=== PATIENT | female | born 1990 | race Caucasian/White ===

== ENCOUNTER 2017-05-24 08:43 | Day surgery (SDC) | payer BC ==
[2017-05-15 16:10] VITALS: BMI 24.1
[2017-05-24] MEDS ORDERED: BUPIVACAINE HCL/EPINEPHRINE/PF 30 ML VIAL IJ ONE (09:50)
[2017-05-24] MEDS ORDERED: LIDOCAINE HCL/PF 2% SDV 5ML VIAL ONE (10:58)
[2017-05-24] MEDS ORDERED: PROPOFOL 20 ML ONE (10:58)
[2017-05-24] MEDS ORDERED: DEXAMETHASONE SOD PHOSPHATE 4 MG/1 ML VIAL ONE (10:58)
[2017-05-24] MEDS ORDERED: ONDANSETRON 4 MG/2 ML VIAL ONE (10:58)
[2017-05-24] MEDS ORDERED: MIDAZOLAM HCL 2 MG/2 ML SINGLE DOSE VIAL ONE (10:58)
[2017-05-24] MEDS ORDERED: LIDOCAINE HCL 2% JELLY (5 ML/TUBE) ONE (10:58)
[2017-05-24] MEDS ORDERED: KETOROLAC TROMETHAMINE 30 MG/1 ML VIAL ONE (10:58)
--- NOTE | 2017-05-24 12:00 | DS ---
Physical Examination Vital Signs: Vital Signs Temperature 98.2 F 05/24/17 09:08 Pulse Rate 74 05/24/17 09:08 Respiratory Rate 16 05/24/17 09:08 Blood Pressure 127/73 05/24/17 09:08 O2 Sat by Pulse Oximetry (%) 100 05/24/17 09:33 Discharge Summary Reason For Visit: MEDIAL MENISCAL TEAR LEFT KNEE Condition: Good - Instructions Diet, Activity, Other Instructions: Post Operative Instructions: Knee Arthroscopy Dr Warner Vick 1. Pain following an arthroscopy is variable. Some patients will have more pain than others. You have been provided with a prescription for medication that contains a narcotic. You are not allowed to drive while on this medication. Feel free to take medications such as Ibuprofen or Naprosyn in addition to the pain medicine if you do not have any problems with the NSAID class of medications. 2. You are allowed to remove the bandages and shower in 24 hours unless directed otherwise. You are not allowed to bathe or go swimming until the sutures are removed. Put band-aids on the glue after your shower and do not put any creams or lotions over the incisions. 3. You are allowed to put all your weight on the leg and bend your knee. 4. Apply ice to the knee for 15 min every hour or so. You may continue this for as many days as you like. 5. Please call the office to schedule a visit to have your sutures removed. 6. If for any reason you believe you may have an infection or are concerned, please feel free to call me. I can be reached through our office number 24 hours a day. 7. Please call our office with any questions; we will review the surgical findings during your post operative visit. Disposition: HOME - Home Medications Comprehensive Discharge Medication List: Ambulatory Orders NK [No Known Home Medication] 05/15/17
--- NOTE | 2017-05-24 12:00 | OP ---
Operative Note - Note: Operative Date: 05/24/17 Pre-Operative Diagnosis: Displaced flap tear of the medial meniscus of the left knee Operation: AILYN, LOU Post-Operative Diagnosis: Same as Pre-op Surgeon: Warner Vick Anesthesia: Local Operative Report Dictated: Yes
[2017-05-24] MEDS ORDERED: ONDANSETRON 4 MG/2 ML VIAL IVPUSH PRN (13:04)
[2017-05-24] MEDS ORDERED: oxyCODONE HCL 5 MG TABLET PO PRN (13:04)
[2017-05-24] MEDS ORDERED: LACTATED RINGERS SOLUTION 1,000 ML IV SCH (13:15)
[2017-05-24] MEDS ORDERED: PROMETHAZINE HCL 25 MG/1 ML VIAL IVPUSH PRN (14:22)
[2017-05-24 17:20] VITALS: BP 105/55; PULSE 75; TEMP 98.6
--- NOTE | 2017-05-27 14:57 | PATH ---
Surgical Pathology Report Patient Name: ARIANE VERMA Med. Rec. #: [id number] /Age/Gender: 1990 (Age: 27) / F Account: [id number] Location: [facility] Taken: 05/24/2017 Received: 05/24/2017 Reported: 05/27/2017 Physicians: Warner Vick M.D. Specimen(s) Received A: LEFT KNEE SHAVINGS B: LEFT KNEE MENISCUS Clinical History Medial meniscal tear Final Diagnosis A. KNEE, LEFT, ARTHROSCOPIC SHAVINGS: FIBROSYNOVIAL TISSUE. B. MENISCUS, LEFT KNEE, MENISCECTOMY: FIBROCARTILAGINOUS TISSUE. Electronically Signed Tamika Saldana M.D. Gross Description A. Received in formalin labeled "left knee shavings," is a 1.5 x 1.2 x 0.2 cm aggregate of noble-yellow soft tissue fragments. The formalin is filtered and the specimen is entirely submitted in one cassette. B. Received in formalin labeled "left knee meniscus," is a 3.7 x 0.8 x 0.2 cm noble, irregular portion of tissue, consistent with a portion of meniscus. The specimen is submitted in toto in one cassette. /05/24/201705/24/2017
== END 2017-05-24 17:15 | disposition home or self-care (01) ==
LOC: FASU 08:43
PROVIDERS: ATTEND Orthopaedic Surgery
PROC: 0SBD4ZZ Excision of Left Knee Joint, Percutaneous Endoscopic Approach (ICD-10-PCS; principal; 2017-05-24 10:00)
DX: S83.242A Other tear of medial meniscus, current injury, left knee, initial encounter (principal); X58.XXXA Exposure to other specified factors, initial encounter; Y93.9 Activity, unspecified; Y92.9 Unspecified place or not applicable
CPT/HCPCS: 84703; 88304-TC